=== PATIENT | female | born 1980 | race Caucasian/White ===

== ENCOUNTER → 2021-11-12 | Outpatient (REF) | payer SELFPAY | LOC: M LAB REF 17:09 | PROVIDERS: ATTEND Ophthalmology | DX: L72.0 Epidermal cyst (principal) ==

== ENCOUNTER 2024-05-02 15:08 | Observation (INO) | payer OTHER, SELFPAY ==
[~2024-05-02] VITALS: Ht 165.1 cm; Wt 130.6 kg
[2024-05-02] MEDS ORDERED: ISOVUE-370 76% 100ML VIAL As Ordered ONE (17:00)
[2024-05-02 17:15] LABS: BASO % 0.8 % (0.0-1.0); EOS # 0.1 10^3/uL (0.0-0.5); EOS % 2.3 % (0.0-3.0); HEMATOCRIT 39.7 % (36.0-47.0); HEMOGLOBIN 12.8 g/dl (12.0-15.5); LYMPH # 1.4 10^3/uL (1.5-5.0); LYMPH % 26.2 % (24.0-44.0); MEAN CORPUSCULAR HEMOGLOBIN 29.2 pg (27.0-33.0); MEAN CORPUSCULAR HGB CONC 32.2 g/dl (32.0-36.5); MEAN CORPUSCULAR VOLUME 90.4 fl (80.0-96.0); MONO # 0.5 10^3/uL (0.0-0.8); MONO % 10.2 % (2.0-8.0); NEUTROPHILS # 3.1 10^3/uL (1.5-8.5); NEUTROPHILS % 60.3 % (36.0-66.0); PLATELET COUNT, AUTOMATED 308 10^3/uL (150-450); RED BLOOD COUNT 4.39 10^6/uL (4.00-5.40); WHITE BLOOD COUNT 5.2 10^3/uL (4.0-10.0)
[2024-05-02] MEDS ORDERED: LEVE10003 PO (17:22)
[2024-05-02] MEDS ORDERED: ATOM10CA6 PO (17:22)
[2024-05-02] MEDS ORDERED: CITA30CA PO (17:22)
[2024-05-02] MEDS ORDERED: OMEP40CA5 PO (17:22)
[2024-05-02] MEDS ORDERED: CLON0.5T2 PO (17:22)
[2024-05-02 17:28] LABS: INR 1.01; PARTIAL THROMBOPLASTIN TIME 29.5 SECONDS (24.8-34.2); PROTHROMBIN TIME 13.6 SECONDS (12.5-14.5)
[2024-05-02 17:29] LABS: METHADONE URINE NEGATIVE (NEGATIVE); OPIATES URINE NEGATIVE (NEGATIVE)
[2024-05-02 17:30] LABS: AMPHETAMINES LEVEL URINE NEGATIVE (NEGATIVE); BARBITURATES URINE NEGATIVE (NEGATIVE); BENZODIAZEPINES URINE NEGATIVE (NEGATIVE); CANNABINOIDS URINE NEGATIVE (NEGATIVE); COCAINE METABOLITE URINE NEGATIVE (NEGATIVE); PHENCYCLIDINE URINE NEGATIVE (NEGATIVE)
[2024-05-02 17:34] LABS: BLOOD UREA NITROGEN 6 MG/DL (9-23); CALCIUM LEVEL 8.9 MG/DL (8.5-10.1); CARBON DIOXIDE LEVEL 28 MMOL/L (20-31); CHLORIDE LEVEL 107 MMOL/L (98-107); CREATININE FOR GFR 0.65 MG/DL (0.55-1.30); GLOMERULAR FILTRATION RATE > 60.0 (>58); GLUCOSE, FASTING 89 MG/DL (60-100); POTASSIUM SERUM 3.9 MMOL/L (3.5-5.1); SODIUM LEVEL 143 MMOL/L (136-145)
[2024-05-02 17:47] LABS: ETHYL ALCOHOL (ETHANOL) < 0.003 % (0.000-0.010)
[2024-05-02 17:49] LABS: SALICYLATE LEVEL < 3.0 MG/DL (<30)
[2024-05-02 17:52] LABS: THYROID STIMULATING HORMONE 1.389 uIU/ML (0.55-4.78)
[2024-05-02 17:55] LABS: ALBUMIN 3.8 G/DL (3.2-5.2); ALKALINE PHOSPHATASE 79 U/L (35-104); ALT/SGPT 16 U/L (7.0-40); AST/SGOT 12 U/L (<34); BILIRUBIN,DIRECT 0.1 MG/DL (<0.4); BILIRUBIN,TOTAL 0.3 MG/DL (0.3-1.2); TOTAL PROTEIN 6.6 G/DL (5.7-8.2)
[2024-05-02 18:38] LABS: OSMOLALITY SERUM 292 MOSM/KG (275-295)
[2024-05-02] MEDS ORDERED: DOCU100C17 PO (18:59)
[2024-05-02] MEDS ORDERED: HOME MED LIST COMPLETE! XX SCH (19:00)
[2024-05-02] MEDS ORDERED: PILL CUTTER 1 EACH XX PRN (20:05)
[2024-05-02] MEDS: clonazePAM 0.5 MG TAB PO SCH (20:54)
[2024-05-02] MEDS: levETIRAcetam 250MG TABLET (KEPPRA) PO SCH (20:54)
[2024-05-02 22:36] VITALS: BP 131/87; TEMP 97.5; O2SAT 99
[2024-05-03] MEDS: CYCLOBENZAPRINE 5MG TABLET PO SCH (00:11)
[2024-05-03] MEDS: ACETAMINOPHEN 325 MG TAB PO PRN (00:12)
[2024-05-03 03:38] VITALS: BP 115/69; TEMP 97.5; O2SAT 98
[2024-05-03 08:15] VITALS: BP 125/67; TEMP 98.1; O2SAT 98
[2024-05-03] MEDS: ATOMOXETINE HCL 10MG CAPSULE (STRATTERA) PO SCH (09:00)
[2024-05-03] MEDS: DOCUSATE SODIUM 100MG CAPSULE PO SCH (09:08)
[2024-05-03] MEDS: PANTOPRAZOLE 40MG TAB (PROTONIX) PO SCH (09:08)
[2024-05-03 09:18] LABS: BLOOD UREA NITROGEN 8 MG/DL (9-23); CALCIUM LEVEL 8.4 MG/DL (8.5-10.1); CARBON DIOXIDE LEVEL 25 MMOL/L (20-31); CHLORIDE LEVEL 109 MMOL/L (98-107); CREATININE FOR GFR 0.54 MG/DL (0.55-1.30); GLOMERULAR FILTRATION RATE > 60.0 (>58); GLUCOSE, FASTING 100 MG/DL (60-100); POTASSIUM SERUM 4.1 MMOL/L (3.5-5.1); SODIUM LEVEL 144 MMOL/L (136-145)
[2024-05-03 09:21] LABS: HEMATOCRIT 40.5 % (36.0-47.0); MEAN CORPUSCULAR HEMOGLOBIN 29.5 pg (27.0-33.0); MEAN CORPUSCULAR HGB CONC 32.1 g/dl (32.0-36.5)
[2024-05-03 09:24] LABS: PLATELET COUNT, AUTOMATED 113 10^3/uL (150-450)
[2024-05-03 12:19] VITALS: BP 114/80; TEMP 97.7; O2SAT 98
[2024-05-03] MEDS ORDERED: zolPIDEM TARTRATE 5 MG TAB PO PRN (13:50)
[2024-05-03] MEDS: oxyCODONE 5MG TAB PO PRN (14:31)
[2024-05-03 16:36] VITALS: BP 115/66; TEMP 97.9; O2SAT 97
[2024-05-03] MEDS ORDERED: OXYC-517 PO (18:59)
[2024-05-03] MEDS ORDERED: LASI20TA3 PO (18:59)
[2024-05-04] MEDS ORDERED: ACET-683 PO ×2 (13:27→13:28)
== END 2024-05-03 19:25 | disposition home or self-care (01) ==
LOC: EDBD 15:08 → M ED 15:08 → M ED INP 15:09 → M MSPAV 22:32
PROVIDERS: ADMIT Student in an Organized Health Care Education/Training Program; ATTEND Student in an Organized Health Care Education/Training Program
DX: R53.1 Weakness (principal); M25.511 Pain in right shoulder; M25.512 Pain in left shoulder; D69.6 Thrombocytopenia, unspecified; G40.909 Epilepsy, unspecified, not intractable, without status epilepticus; M62.838 Other muscle spasm; E66.9 Obesity, unspecified; Z79.899 Other long term (current) drug therapy; Z88.1 Allergy status to other antibiotic agents; Z88.2 Allergy status to sulfonamides; Z88.8 Allergy status to other drugs, medicaments and biological substances
CPT/HCPCS: 36415; 70450; 70496; 70498; 70544; 70551; 71045; 74176; 80047; 80048; 80076; 80143; 80307; 81001; 82077; 82140; 83880; 83930; 84443; 84484; 85025; 85027; 85610; 85730; 93005; 93041; 93971; 94760; 97161; 97530; 99285; Q9967